=== PATIENT | male | born 1995 | race Caucasian/White ===

== ENCOUNTER 2017-01-03 18:16 | Emergency (ER) | payer OTHER ==
[~2017-01-03] VITALS: Ht 182.9 cm; Wt 141.0 kg
[2017-01-03 18:29] VITALS: TEMP 36.9; Ht 182.9 cm; Wt 141.0 kg
--- NOTE | 2017-01-03 18:50 | EMERGENCY ROOM VISIT NOTE ---
ED Visit Note First contact with patient: 18:43 This Patient was discussed with the physician Director Product Safety, Viola Dixon PA-C. The pertinent historical and physical exam findings were confirmed. I agree with the studies ordered and with the interpretations of these studies. I agree with the disposition and care plan.
[2017-01-03 19:29] LABS: BASO % 0.4 %; BASO ABS # 0.03 K/uL (0-0.2); COMPLETE YES; EOS % 1.2 %; HEMATOCRIT 44.9 % (42-52); IG% 0.4 %; LYMPH % 26.9 %; LYMPH ABS # 2.03 K/uL (1.2-3.4); MEAN CELL VOLUME 84.7 fL (80-100); MEAN CORPUSCULAR HEMOGLOBIN 31.3 pg (25-34); MEAN PLATELET VOLUME 9.9 fL (7.4-10.4); MONO % 9.1 %; PLATELET COUNT 262 K/uL (130-400); WHITE BLOOD COUNT 7.55 K/uL (4.8-10.8)
[2017-01-03] MEDS ORDERED: OPTIRAY 320 IV PRN (19:30)
[2017-01-03 19:34] LABS: ISTAT CREATININE 0.9 mg/dl (0.6-1.3); ISTAT HEMOGLOBIN 16.7 g/dl (14.0-18.0); ISTAT IONIZED CALCIUM 1.18 mmol/l (1.12-1.32)
[2017-01-03 19:52] LABS: BUN/CREATININE RATIO 14.8 (10-20); CALCIUM 9.2 mg/dl (8.5-10.1); CREATININE 0.94 mg/dl (0.60-1.40); POTASSIUM 3.7 mmol/L (3.5-5.1)
--- NOTE | 2017-01-03 20:02 | EMERGENCY ROOM VISIT NOTE ---
History First contact with patient: 18:34 Chief Complaint: EAR PAIN Stated Complaint: EAR PAIN History of Present Illness The patient is a 21 year old male who presents to the Emergency Room with complaints of left ear pain. The patient has a history of recurrent otitis media as a child and had tubes placed multiple times. The patient states that every few years he has a bout of otitis media. He states that he had pain in his ear for the last 1 month. He saw his family doctor initially and was placed on amoxicillin for 10 days. He did not have any improvement in 1 to urgent care and was placed on Augmentin. The patient states the pain persists. He reports pulsatile tinnitus. He reports decreased hearing. He states he feels a feeling of fullness in the ear. He rates his discomfort a 6/10. He denies any fevers or chills. He denies any sore throat or cough. Denies any falls, injuries. Review of Systems A 10 system review of systems was completed with positives and pertinent negatives listed in the HPI. Past Medical/Surgical History Medical Problems: (1) adenoidectomy (2) Back pain with sciatica (3) Depression (4) Right knee sprain (5) Right knee sprain (6) Sprain of knee (7) tubes in ears Family History Cancer Diabetes mellitus Heart disease Hypertension Social History Smoking Status: Current Every Day Smoker Alcohol Use: none Drug Use: none Marital Status: single Housing Status: lives with family Occupation Status: employed Current/Historical Medications Scheduled Cefdinir (Omnicef), 300 MG PO Q12H Prednisone (Prednisone), 1 TAB PO DAILY Allergies Coded Allergies: No Known Allergies (Unverified , 01/03/17) Physical Exam Vital Signs Date Time Temp Pulse Resp B/P Pulse Ox O2 Delivery O2 Flow Rate FiO2 01/03/17 20:45 80 18 154/73 99 Room Air 01/03/17 18:29 36.9 86 20 146/97 98 Room Air Physical Exam VITALS: Vitals are noted on the nurse's note and reviewed by myself. Vital signs stable. GENERAL: This is a 21-year-old male, in no acute distress, nondiaphoretic, well- developed well-nourished. SKIN: The skin was without rashes, erythema, edema, or bruising. There is no tenting of the skin. Capillary reflex less than 2 seconds. HEAD: Normocephalic atraumatic. EARS: The left external auditory canal is not edematous. There appears to be a pulsatile effusion to the left ear. There is no bleeding. I cannot identify the anatomy of the left tympanic membrane. The right tympanic membrane reveals scarring secondary to previous myringotomy. There is no erythema or effusion. EYES: Pupils equal round and reactive to light and accommodation. Conjunctivae without injection, sclerae without icterus. Extraocular movements intact. NOSE: Patent, turbinates without inflammation or discharge. No sinus tenderness. MOUTH: Mucous membranes moist. Tonsils are not enlarged. Pharynx without erythema or exudate. Uvula midline. Airway patent. Tongue does not deviate. NECK: Supple without nuchal rigidity. No lymphadenopathy. No thyromegaly. Cervical spine is nontender. No JVD. HEART: Regular rate and rhythm without murmurs gallops or rubs. LUNGS: Clear to auscultation bilaterally without wheezes, rales or rhonchi. No dullness to percussion. No retractions or accessory muscle use. MUSCULOSKELETAL: No muscle atrophy, erythema, or edema noted. Full range of motion in all extremities. Normal gait. Strength 5/5 throughout. NEURO: Patient was alert and oriented to person place and time. No focal neurological deficits. Medical Decision & Procedures ER Provider Diagnostic Interpretation: [~ rep ct add3]] CT mastoid MASTOIDS-ORB/SELLA/TEMP W/ CLINICAL HISTORY: left ear pain, mass pulsatile mass TECHNIQUE: Transaxial acquisition with multi axial reformatted images COMPARISON STUDY: None FINDINGS: Complete opacification with associated sclerosis left mastoid air cells. Soft tissue within the middle ear cavity extending superiorly to the attic and encompassing the middle ear ossicles. There appears to be partial retraction of the left tympanic membrane. There does not appear to be erosion of the scutum. Given the clinical history of a pulsatile mass, possibly of a vascular component is not excluded although a cholesteatoma at least in part is considered. The right mastoid air cells show moderate evidence for sclerosis and incomplete mucosal thickening. Middle ear canal shows moderate soft tissue prominence. The ossicles appear to be aligned in general appropriately. There is moderate retraction of the right tympanic membrane. Semicircular canals appear to be intact bilaterally. IMPRESSION: 1. Complete opacification with associated sclerosis left and to lesser extent right mastoid air cells. 2. Complete soft tissue opacification of the left middle ear cavity including all components of the attic and auditus ad antrum. 3. Although the scutum is intact, possibility of a developing cholesteatoma must be considered. Clinical history of a visible pulsatile mass, however makes exclusion of a vascular component impossible. 4. Similar but much less prominent findings involving the right middle ear cavity with moderate retraction of the right tympanic membrane and moderate soft tissue prominence in the attic as well as bulk of the mastoids. Laboratory Results 01/03/17 19:15 Red Blood Count 5.30, Mean Corpuscular Volume 84.7, Mean Corpuscular Hemoglobin 31.3, Mean Corpuscular Hemoglobin Concent 37.0, Mean Platelet Volume 9.9, Neutrophils (%) (Auto) 62.0, Lymphocytes (%) (Auto) 26.9, Monocytes (%) (Auto) 9.1, Eosinophils (%) (Auto) 1.2, Basophils (%) (Auto) 0.4, Neutrophils # (Auto) 4.68, Lymphocytes # (Auto) 2.03, Monocytes # (Auto) 0.69, Eosinophils # (Auto) 0.09, Basophils # (Auto) 0.03 01/03/17 19:15 Test 01/03/17 19:09 01/03/17 19:15 Bedside Hemoglobin 16.7 g/dl (14.0-18.0) Bedside Hematocrit 49 % (42-52) Bedside Sodium 140 mEq/L (135-144) Bedside Potassium 3.8 mEq/L (3.3-5.0) Bedside Chloride 101 mEq/L (101-112) Bedside Total CO2 25 mEq/l (24-31) Bedside Blood Urea Nitrogen 15 mg/dl (7-18) Bedside Creatinine 0.9 mg/dl (0.6-1.3) Bedside Glucose (other) 90 mg/dl (70-99) Bedside Ionized Calcium (Sangeeta) 1.18 mmol/l (1.12-1.32) White Blood Count 7.55 K/uL (4.8-10.8) Red Blood Count 5.30 M/uL (4.7-6.1) Hemoglobin 16.6 g/dL (14.0-18.0) Hematocrit 44.9 % (42-52) Mean Corpuscular Volume 84.7 fL (80-100) Mean Corpuscular Hemoglobin 31.3 pg (25-34) Mean Corpuscular Hemoglobin Concent 37.0 g/dl (32-36) Platelet Count 262 K/uL (130-400) Mean Platelet Volume 9.9 fL (7.4-10.4) Neutrophils (%) (Auto) 62.0 % Lymphocytes (%) (Auto) 26.9 % Monocytes (%) (Auto) 9.1 % Eosinophils (%) (Auto) 1.2 % Basophils (%) (Auto) 0.4 % Neutrophils # (Auto) 4.68 K/uL (1.4-6.5) Lymphocytes # (Auto) 2.03 K/uL (1.2-3.4) Monocytes # (Auto) 0.69 K/uL (0.11-0.59) Eosinophils # (Auto) 0.09 K/uL (0-0.5) Basophils # (Auto) 0.03 K/uL (0-0.2) RDW Standard Deviation 38.3 fL (36.4-46.3) RDW Coefficient of Variation 12.4 % (11.5-14.5) Immature Granulocyte % (Auto) 0.4 % Immature Granulocyte # (Auto) 0.03 K/uL (0.00-0.02) Anion Gap 8.0 mmol/L (3-11) Est Creatinine Clear Calc Drug Dose 181.0 ml/min Estimated GFR () 133.8 Estimated GFR (Non- 115.4 BUN/Creatinine Ratio 14.8 (10-20) Calcium Level 9.2 mg/dl (8.5-10.1) Total Bilirubin 0.4 mg/dl (0.2-1) Aspartate Amino Transf (AST/SGOT) 35 U/L (15-37) Alanine Aminotransferase (ALT/SGPT) 51 U/L (12-78) Alkaline Phosphatase 98 U/L (45-117) Total Protein 8.2 gm/dl (6.4-8.2) Albumin 4.1 gm/dl (3.4-5.0) Globulin 4.1 gm/dl (2.5-4.0) Albumin/Globulin Ratio 1.0 (0.9-2) Medications Administered Medications (Trade) Dose Ordered Sig/Yvette Route Start Time Stop Time Status Last Admin Dose Admin Prednisone (PredniSONE TAB) 40 mg STK-MED ONCE .ROUTE 01/03/17 20:39 01/03/17 20:41 DC 01/03/17 20:54 40 MG Prednisone (PredniSONE TAB) 10 mg STK-MED ONCE .ROUTE 01/03/17 20:39 01/03/17 20:41 DC 01/03/17 20:54 10 MG Cefdinir (Omnicef Susp) 300 mg NOW ONCE PO 01/03/17 21:00 01/03/17 21:01 DC 01/03/17 20:54 300 MG ED Course The patient was seen and examined. Previous visits were reviewed. The patient does not have a fever or leukocytosis. He does not have any significant electrolyte abnormality. The patient appears to have a pulsatile effusion of the left year. Initial consideration was for cholesteatoma. I did ask Dr. Alicea to examine the patient as well. After discussion with radiology on possible imaging, a CT of the mastoids with IV contrast was obtained. This is as above. There is opacification and questionable cholesteatoma. I discussed the case with Dr. Porter. He recommends antibiotics such as cephalosporin and prednisone He recommends follow-up in the office on Saturday The patient was advised of this. He was given his first doses in the emergency department. He should return to the ER with any worsening symptoms. The patient was also seen and examined by who agrees with the assessment and treatment plan. Medical Decision The differential diagnosis includes otitis media, otitis externa, globus tumor, cholesteatoma, among others Impression Primary Impression: Middle ear effusion Additional Impression: Cholesteatoma Departure Information Dispostion Home / Self-Care Condition GOOD Prescriptions Cefdinir (Omnicef) 300 Mg Cap 300 MG PO Q12H for 10 Days, #20 CAP Prov: Berenice Dixon PA-C 01/03/17 Prednisone (Prednisone) 50 Mg Tab 1 TAB PO DAILY for 5 Days, #5 TAB Prov: Berenice Dixon PA-C 01/03/17 Referrals Hugo Pena M.D. (PCP) Keesha Porter M.D. Patient Instructions Anatomy Ear, [facility] Additional Instructions Omnicef 300 mg every 12 hours for a total of 10 days Prednisone 50 mg daily until gone Ibuprofen 600 mg every 6-8 hours or moderate pain Contact Dr. Porter's office first thing in the morning for a follow-up appointment with audiology on Saturday Contact your insurance company to inquire if you need a referral from your family doctor for the ENT appointment Return immediately with severe headaches, fevers, vomiting, neck pain, neck stiffness that could suggest meningitis or worsening infection Problem Qualifiers Primary Impression: Middle ear effusion Laterality: left Qualified Codes: H65.92 - Unspecified nonsuppurative otitis media, left ear Additional Impression: Cholesteatoma Laterality: left Qualified Codes: H71.92 - Unspecified cholesteatoma, left ear
--- NOTE | 2017-01-03 20:06 | DIAGNOSTIC IMAGING REPORT ---
CT mastoid MASTOIDS-ORB/SELLA/TEMP W/ CLINICAL HISTORY: left ear pain, mass pulsatile mass TECHNIQUE: Transaxial acquisition with multi axial reformatted images COMPARISON STUDY: None FINDINGS: Complete opacification with associated sclerosis left mastoid air cells. Soft tissue within the middle ear cavity extending superiorly to the attic and encompassing the middle ear ossicles. There appears to be partial retraction of the left tympanic membrane. There does not appear to be erosion of the scutum. Given the clinical history of a pulsatile mass, possibly of a vascular component is not excluded although a cholesteatoma at least in part is considered. The right mastoid air cells show moderate evidence for sclerosis and incomplete mucosal thickening. Middle ear canal shows moderate soft tissue prominence. The ossicles appear to be aligned in general appropriately. There is moderate retraction of the right tympanic membrane. Semicircular canals appear to be intact bilaterally. IMPRESSION: 1. Complete opacification with associated sclerosis left and to lesser extent right mastoid air cells. 2. Complete soft tissue opacification of the left middle ear cavity including all components of the attic and auditus ad antrum. 3. Although the scutum is intact, possibility of a developing cholesteatoma must be considered. Clinical history of a visible pulsatile mass, however makes exclusion of a vascular component impossible. 4. Similar but much less prominent findings involving the right middle ear cavity with moderate retraction of the right tympanic membrane and moderate soft tissue prominence in the attic as well as bulk of the mastoids. Electronically signed by: Dom Mae M.D. 01/03/2017 8:05 PM Dictated Date/Time: 01/03/2017 7:56 PM
[2017-01-03] MEDS ORDERED: CEFD1CAP14 PO ×2 (20:28→21:02)
[2017-01-03] MEDS ORDERED: PRED50TA PO (20:28)
[2017-01-03 20:45] VITALS: BP 154/73; PULSE 80; O2SAT 99
[2017-01-03] MEDS ORDERED: CEFDINIR 250 MG/5 ML 60 ML PO ONE ×2 (21:00)
[2017-02-11] MEDS ORDERED: TOBRSUS OTL (14:07)
[2017-02-11] MEDS ORDERED: CALC500C3 PO (14:07)
== END 2017-01-03 20:58 | disposition home or self-care (01) ==
LOC: C.EDB 18:19 → C.EDD 20:58
DX: H71.92 Unspecified cholesteatoma, left ear (principal); H66.92 Otitis media, unspecified, left ear; F32.9 Major depressive disorder, single episode, unspecified; F17.200 Nicotine dependence, unspecified, uncomplicated; Z87.828 Personal history of other (healed) physical injury and trauma; Z98.890 Other specified postprocedural states; Z80.9 Family history of malignant neoplasm, unspecified; Z83.3 Family history of diabetes mellitus; Z82.49 Family history of ischemic heart disease and other diseases of the circulatory system

== ENCOUNTER 2017-02-26 05:01 | Day surgery (SDC) | payer OTHER ==
[2017-02-11 14:07] VITALS: BMI 41.0
[~2017-02-26] VITALS: Ht 182.9 cm; Wt 136.4 kg
[~2017-02-26 05:01] MED LIST: CALC500C3 PO; TOBRSUS OTL
[2017-02-26 05:36] VITALS: BP 137/75; PULSE 68; TEMP 36.7; O2SAT 97; Ht 182.9 cm; Wt 136.4 kg
[2017-02-26] MEDS ORDERED: LACTATED RINGER'S 1000ML 1,000 ML IV SCH (06:00)
[2017-02-26] MEDS ORDERED: MIDAZOLAM HCL 1 MG/ML 2ML VIAL ONE (06:51)
[2017-02-26] MEDS ORDERED: FENTANYL CITRATE INJ 50 MCG/1 ML 2 ML VIAL ONE ×4 (06:51→13:09)
[2017-02-26] MEDS ORDERED: LIDOCAINE HCL 2% 2 ML VIAL (20MG/ML) ONE (06:51)
[2017-02-26] MEDS ORDERED: SUCCINYLCHOLINE CHLORIDE 20 MG/ML 10 ML VIAL IV ONE (06:51)
[2017-02-26] MEDS ORDERED: ONDANSETRON INJ 2 MG/ML 2 ML VIAL ONE (06:51)
[2017-02-26] MEDS ORDERED: PROPOFOL IV EMULSION 10 MG/ML 20 ML VIAL IV ONE (06:51)
[2017-02-26] MEDS ORDERED: DEXAMETHASONE SOD INJ 4 MG/ML VIAL ONE ×2 (06:51→08:25)
--- NOTE | 2017-02-26 07:15 | History & Physical Bridge Note ---
H&P Re-Evaluation Bridge Note: I have examined the patient, reviewed the History & Physical and in the interval since the performance of the History & Physical I have noted the following changes of clinical significance: No changes noted
[2017-02-26] MEDS ORDERED: CIPRO 0.3%/DEXAMETHASONE 0.1% OTIC SUSP 7.5ML ONE (07:16)
[2017-02-26] MEDS ORDERED: OFLOXACIN 0.3% OP SOLN 5 ML BTL ONE (07:17)
[2017-02-26] MEDS ORDERED: BACITRACIN OINT 15 GM TUBE ONE ×2 (07:17→12:06)
[2017-02-26] MEDS ORDERED: EpINEphrine INJ 1MG/ML AMP 1 MG/ML AMP ONE (07:18)
[2017-02-26] MEDS ORDERED: LACTATED RINGER'S 1000ML 1,000 ML IV PRN (07:44)
[2017-02-26] MEDS ORDERED: FENTANYL CITRATE INJ 50 MCG/1 ML 2 ML VIAL IV PRN (07:45)
[2017-02-26] MEDS ORDERED: METOCLOPRAMIDE HCL INJ 5 MG/ML 2 ML VIAL IV PRN (07:45)
[2017-02-26] MEDS ORDERED: DiphenhydrAMINE HCL 50 MG/ML VIAL IV PRN (07:45)
[2017-02-26] MEDS ORDERED: ONDANSETRON INJ 2 MG/ML 2 ML VIAL IV PRN ×2 (07:45→11:45)
[2017-02-26] MEDS ORDERED: ROCURONIUM BROMIDE 10 MG/ML 5 ML VIAL ONE (08:06)
[2017-02-26] MEDS ORDERED: CEFAZOLIN IV 3,000 MG/65 ML D5W IV ONE (08:20)
[2017-02-26] MEDS ORDERED: GELATIN SPONGE SZ 100 ONE (08:26)
[2017-02-26] MEDS ORDERED: LIDOCAINE/EPINEPHRINE 1% 20 ML VIAL ONE (08:45)
[2017-02-26] MEDS ORDERED: LARYING-O-JET KIT (LTA) EXT ONE ×2 (10:21)
[2017-02-26] MEDS ORDERED: PHENYLEPHRINE 100MCG/ML 5ML SYR ONE (11:32)
[2017-02-26] MEDS ORDERED: SODIUM CHLORIDE 0.9% 1000ML 1,000 ML IV SCH (11:40)
--- NOTE | 2017-02-26 11:40 | Discharge Instructions ---
Discharge Instructions Date of Service Feb 26, 2017. Admission Reason for Admission: Cholesteatoma of Left Ear, Dysfunction of [place] Discharge Discharge Diagnosis / Problem: Cholesteatoma of left ear, Eustachian Tube Dysfunction Discharge Goals Goal(s): Therapeutic intervention Activity Recommendations Activity Limitations: as noted below Lifting Limitations: no more than 5 pounds (No strenuous activity until directed) Shower/Bathe: keep incision dry . Instructions / Follow-Up Instructions / Follow-Up Patient will follow up with Dr. Kwesi Mccain at the [facility] ENT office on Saturday as scheduled. Current Hospital Diet Patient's current hospital diet: Discharge Diet Recommended Diet: Regular Diet Procedures Procedures Performed: Right Ear Examination and Left Tympanomastoidectomy with Facial Nerve Monitoring Pending Studies Studies pending at discharge: no Medical Emergencies . Who to Call and When: Medical Emergencies: If at any time you feel your situation is an emergency, please call 911 immediately. . Non-Emergent Contact Non-Emergency issues call your: Primary Care Provider . . "Provider Documentation" section prepared by Esme Alex. VTE Core Measure Inpt VTE Proph given/why not?: SCD's
[2017-02-26] MEDS ORDERED: ACETAMINOPHEN 325 MG TAB PO PRN (11:45)
[2017-02-26] MEDS ORDERED: HYDROCODONE/ACETAMOPHEN 5/325MG TAB PO PRN (11:45)
[2017-02-26] MEDS ORDERED: KETOROLAC TROMETHAMINE 30 MG/ML VIAL ONE (12:24)
[2017-02-26] MEDS ORDERED: METOCLOPRAMIDE HCL INJ 5 MG/ML 2 ML VIAL ONE (13:11)
[2017-02-26] MEDS ORDERED: LABETALOL HCL IV 5 MG/ML 20ML IV ONE (13:22)
[2017-02-26 13:45] VITALS: BP 157/73; PULSE 108; TEMP 36.7; O2SAT 95
--- NOTE | 2017-02-26 14:07 | Anesthesiology Progress Note ---
Anesthesia Post Op Note Date & Time Feb 26, 2017 at 14:06 Vital Signs Pain Intensity: 2 Vital Signs Past 12 Hours Date Time Temp Pulse Resp B/P Pulse Ox O2 Delivery O2 Flow Rate FiO2 02/26/17 13:45 36.7 108 18 157/73 95 Room Air 02/26/17 13:33 155/99 02/26/17 13:32 110 19 02/26/17 13:32 36.8 02/26/17 13:32 108 19 95 02/26/17 13:30 179/78 02/26/17 13:27 106 7 96 02/26/17 13:27 106 7 02/26/17 13:26 105 16 96 02/26/17 13:26 105 16 02/26/17 13:25 154/75 02/26/17 13:21 115 15 02/26/17 13:21 115 15 96 02/26/17 13:20 168/81 02/26/17 13:16 114 12 02/26/17 13:16 114 12 93 02/26/17 13:15 116 23 02/26/17 13:15 118 23 160/78 94 02/26/17 13:14 180/81 02/26/17 13:10 126 21 02/26/17 13:10 125 21 120/89 93 02/26/17 13:05 135 15 186/151 93 02/26/17 13:05 136 15 02/26/17 13:00 117 16 02/26/17 13:00 117 16 180/71 96 02/26/17 12:55 122 14 02/26/17 12:55 36.3 118 18 161/72 98 Mask 10 02/26/17 12:55 122 14 161/72 97 02/26/17 05:36 36.7 68 20 137/75 97 Room Air Notes Mental Status: alert / awake / arousable, participated in evaluation Pt Amnestic to Procedure: Yes Nausea / Vomiting: adequately controlled Pain: adequately controlled Airway Patency, RR, SpO2: stable & adequate BP & HR: stable & adequate Hydration State: stable & adequate Anesthetic Complications: no major complications apparent Pt doing well.
--- NOTE | 2017-02-26 14:11 | OPERATIVE REPORT ---
DATE OF OPERATION: 02/26/2017 REFERRING ENT: Dr. Charbel Soriano. OPERATION PERFORMED: 1. Left tympanomastoidectomy with intraoperative monitoring of the facial nerve. 2. Exam of right ear. PREOPERATIVE DIAGNOSES: 1. Cholesteatoma, left ear. 2. Atelectatic right tympanic membrane. 3. Beltran-tympanic left tympanic membrane perforation. POSTOPERATIVE DIAGNOSES: 1. Cholesteatoma, left ear. 2. Atelectatic right tympanic membrane. 3. Beltran-tympanic left tympanic membrane perforation. SUMMARY OF FINDINGS: 1. Severely atelectatic right tympanic membrane and it was not possible to place pressure equalization tube in that ear. 2. Extremely sclerotic left mastoid with granulation tissue in the mastoid cavity and the attic and squamous debris in the middle ear space going down into the facial recess with a beltran-tympanic membrane perforation. BLOOD LOSS: 150 mL IV FLUIDS: 1500 mL of crystalloid. INDICATION FOR THE PROCEDURE: This is a 21-year-old man with longstanding ear disease. He was seen by Dr. Charbel Adorno, and he diagnosed cholesteatoma in this patient. My evaluation was in agreement with Dr. Soriano's After meeting with the patient, discussing the situation, reviewing the CT scans and his audiogram, left tympanomastoidectomy with facial nerve monitoring was offered. A full informed consent including the indications, risks, benefits, and alternatives was provided in a relaxed office setting. There was an opportunity for questions and answers. I mentioned that if it was possible, I would also place a tube in the right ear. SPECIMEN SENT: 1. Granulation tissue, left mastoid cavity. 2. Granulation tissue, left attic. 3. Squamous debris left middle ear space. Sponge and needle count was correct at the end the case. COMPLICATIONS: None. DISCLAIMER: This Xomed drill became nonfunctional during the case, and I had to switch to the Midas Aric. This made the case go a little bit longer than anticipated. DESCRIPTION OF PROCEDURE: The patient had an uneventful endotracheal intubation. The table was turned 180 degrees away from the [employer]. At this point, the head was turned to the right side and his hair was shaved and he was prepped and draped in a standard fashion after injecting the left postauricular area and the external auditory canal with 12 mL of 1% lidocaine with 1:100,000 parts epinephrine. +++++ THERE WAS SQUAMOUS DEBRIS IN THE MIDDLE EAR SPACE THAT WAS REMOVED BY SUCTION, BUT NOT SENT TO SURGICAL PATHOLOGY. I used the operating microscope to evaluate the right ear and it was just so severely atelectatic there was no way I would be able to put a tube in the right ear. Therefore, that was abandoned. Following standard prep and drape, I first of all made a postauricular incision 1 fingerbreadth behind the postauricular sulcus on the left side. I the dermis from subcutaneous tissue and the subcutaneous tissue from periosteum so that I would have a 3-layer closure. T-type periosteal flaps were elevated with Bovie and a periosteal elevator. Temporalis fascia was harvested in my usual technique, pressed, and set aside to dry. Cortical mastoidectomy was done starting with just my surgical loops and the drill. Then, I introduced the operating microscope and completed the mastoidectomy. About midway, the Xomed drill became nonfunctional, we had to introduce the Midas Aric. The facial ridge was lowered and there was a large anterior canal wall bulge which I removed by elevating anterior canal wall skin and by drilling away that bone. I had created a long posterior vascular strip before drilling, and this was held out of harm's way throughout the entire procedure. I was able to expose all the ossicles and the malleus was somewhat foreshortened. The incudostapedial joint was intact and there was no erosion of the incus long process. There was some squamous debris into the oval window, and I removed this with a slightly curved Aguilar pick and also with a cupped forceps. Some of the cholesteatoma went back to the facial recess and I removed all this using a right angle and cupped forceps. After this, there was no cholesteatoma remaining in the middle ear space. Chorda tympany nerve was identified and preserved throughout the case. It was not stretched. He had a very small amount of anterior tympanic membrane remnant remaining at the annulus. The annulus was already gone posteriorly due to the cholesteatoma. After assessing mobility and finding that the ossicles were mobile and that there was no remaining cholesteatoma, I took the temporalis fascia that was previously harvested, pressed and dried, and I inserted it in an underlay technique. I was able to get it quite far anterior underneath the remnant of the tympanic membrane and the annulus anteriorly. I packed the middle ear space with Gelfoam with Ciprodex. I draped this temporalis fascia over the lowered facial ridge and over the short process of the incus. I had harvested some other subcutaneous tissue and I also placed this over the incus and then used Gelfoam with Ciprodex to hold everything in place before Tisseel was added to hold the whole assembly in perfect position. Attention was then directed to the meatoplasty. This was done using my standard technique and a 3-level closure was used after removal of conchal bowl cartilage. Incisions were made at 12 and 6, and there was a wide meatoplasty that I was able to stick my thumb through. Meatoplasty was held widely patent with 2-0 Vicryl suture. The periosteal layer was closed with 2-0 Vicryl in a simple interrupted fashion. Subcutaneous tissue was closed with 3-0 chromic in a simple interrupted fashion. Dermis was closed with 4-0 chromic in an inverted buried technique. Skin was closed with interrupted 5-0 nylon and running 6-0 nylon suture. The mastoid cavity was packed through the meatoplasty with 72 inches of one-half inch of Vaseline gauze impregnated with bacitracin ointment. This held everything in perfect position, and then I placed a cotton in the meatus that was impregnated with bacitracin ointment. I cleaned the ear with hydrogen peroxide, followed by alcohol, and pressed against it and there was no further blood extruded. The ear was nice and dry. I dried it with lap sponge. Bacitracin ointment was placed over the postauricular incision and a Pickett dressing was positioned. The electrodes were removed under my observation, and there was no damage to the skin or the eye. The patient was allowed to wake up on his own and transported to recovery in no apparent distress. FACIAL NERVE FUNCTION WAS INTACT BILATERALLY I attest to the content of the Intraoperative Record and any orders documented therein. Any exceptions are noted below. TENZIN
[2017-02-26 14:20] VITALS: BP 156/65; PULSE 103; O2SAT 94
[2017-02-26 14:40] VITALS: BP 151/66; PULSE 101; O2SAT 95
--- NOTE | 2017-02-26 15:29 | [facility] Post Operative Brief Note ---
Immediate Operative Summary Operative Date Feb 26, 2017. Pre-Operative Diagnosis Cholesteatoma of the Left Ear Post-Operative Diagnosis Cholesteatoma of the Left Ear Procedure(s) Performed Right Ear Examination and Left Tympanomastoidectomy with Facial Nerve Monitoring Surgeon Dr. Kwesi Mccain Tabulating Machine Mechanic Surgeon(s) None Estimated Blood Loss 150ml Findings A) Left Cholesteatoma. B) Left Pantympanic membrane perforation. C) Right Tympanic membrane atelectasis. D) Intact and not strectched left chorda tympani nerve. Specimens A. Contents Left Mastoid Cavity B. Left Attic Tissue C. Contents Left Middle Ear Anesthesia General viat ET Tube. Complication(s) None Disposition Recovery Room / PACU
== END 2017-02-26 14:45 | disposition home or self-care (01) ==
LOC: C.ACU 05:01
PROVIDERS: ATTEND Otolaryngology
DX: H71.92 Unspecified cholesteatoma, left ear (principal); H73.891 Other specified disorders of tympanic membrane, right ear; H91.8X9 Other specified hearing loss, unspecified ear; F17.210 Nicotine dependence, cigarettes, uncomplicated; K21.9 Gastro-esophageal reflux disease without esophagitis; E66.9 Obesity, unspecified; Z90.89 Acquired absence of other organs